=== PATIENT | female | born 1950 | race Caucasian/White ===

== ENCOUNTER 2018-03-02 12:48 | Observation (INO) | payer MEDICARE ==
[~2018-03-02] VITALS: Ht 162.6 cm; Wt 73.5 kg
[~2018-03-02 12:48] MED LIST: ACETAMINOPHEN325 M1 PO; ASPIR 8181 MG PO; CALCIUM 500+D1 EACH PO; CLONAZEPAM0.5 MG PO; CORICIDIN HBP1 EAC3 PO; COUGH DROPS1 EACH PO; EFFEXOR XR 3737.5 MG PO; MAGNESIUM OXID400 MG PO; METOPROLOL TART50 MG PO; MUCINEX DM ER1 EACH PO; MULTI-VITAMIN1 EACH PO; PANTOPRAZOLE SO40 MG PO; RISPERDAL1 MG PO; ROBITUSSIN COU118 ML PO; SENNOSIDES8.6 MG PO; ULTRAM50 MG PO; VALPROIC A250 MG/5 M PO; VASOTEC10 MG PO; VITAMIN B-650 MG PO; [UNRECOGNIZED DRUG - OTHER] PO
[2018-03-02 13:36] LABS: BASOPHILS % 0.4 % (0.0-1.0); EOSINOPHILS # (AUTO) 0.1 (0.0-0.4); EOSINOPHILS % 1.1 % (0.0-6.0); HEMATOCRIT 37.6 % (34.2-44.1); HEMOGLOBIN 12.7 g/dL (12.0-16.0); LYMPHOCYTES # (AUTO) 1.4 (1.0-3.2); LYMPHOCYTES % 24.1 % (18.0-39.1); MEAN CORPUSCULAR HEMOGLOBIN 31.4 pg (28-32); MEAN CORPUSCULAR HGB CONC 33.8 g/dL (31-35); MEAN CORPUSCULAR VOLUME 93.1 fL (81-99); MONOCYTES # (AUTO) 0.4 (0.2-0.8); MONOCYTES % 7.5 % (4.4-11.3); NEUTROPHILS # (AUTO) 3.7 (2.1-6.9); NEUTROPHILS % 66.5 % (38.7-80.0); PLATELET COUNT 270 x10e3/uL (140-360); RED BLOOD COUNT 4.04 x10e6/uL (3.6-5.1); RED CELL DISTRIBUTION WIDTH 12.7 % (11.7-14.4)
--- NOTE | 2018-03-02 13:51 | Diagnostic Imaging Report ---
Examination: Single AP view of the chest. COMPARISON: None. INDICATION: Altered mental status DISCUSSION: Lines/tubes: None. Lungs: The lungs are well inflated and clear. No pneumonia or pulmonary edema. Pleura: No pleural effusion or pneumothorax. Heart and mediastinum: The heart and the mediastinum are unremarkable. Bones and soft tissues: No acute bony abnormalities. IMPRESSION: 1. No acute cardiopulmonary abnormalities. Signed by: Dr. Fidel Scott M.D. on 03/02/2018 1:47 PM
[2018-03-02 13:54] LABS: ALANINE AMINOTRANSFERASE 18 IU/L (0-55); ALBUMIN 3.7 g/dL (3.5-5.0); ALBUMIN/GLOBULIN RATIO 1.3 (0.8-2.0); ALKALINE PHOSPHATASE 49 IU/L (40-150); ANION GAP 14.6 mmol/L (8-16); BLOOD UREA NITROGEN 13 mg/dL (7-26); BUN/CREATININE RATIO 13 (6-25); CALCIUM 9.6 mg/dL (8.4-10.2); CARBON DIOXIDE 25 mmol/L (22-29); CHLORIDE 100 mmol/L (98-107); CREATINE KINASE 77 IU/L (29-168); CREATININE, SERUM 1.02 mg/dL (0.57-1.11); EST GLOMERULAR FILTRATION RATE 54 ML/MIN (60-); GLUCOSE 94 mg/dL (74-118); POTASSIUM 4.6 mmol/L (3.5-5.1); SODIUM 135 mmol/L (136-145)
[2018-03-02 14:01] LABS: VALPROIC ACID 48 ug/mL (50-100)
--- NOTE | 2018-03-02 14:08 | Diagnostic Imaging Report ---
History: Lethargic, AMS Comparison studies: None Technique: Axial images were obtained from the skull base to the vertex. Coronal and sagittal reconstructions obtained from the axial data. Dose modulation, iterative reconstruction, and/or weight based adjustment of the mA/kV was utilized to reduce the radiation dose to as low as reasonably achievable. Findings: Scalp/skull: No abnormalities. No fractures, blastic or lytic lesions. Extra-axial spaces: No masses. No fluid collections. Brain sulci: Appropriate for age. Ventricles: Normal in size and configuration. No hydrocephalus. Parenchyma: No abnormal densities. No masses, hemorrhage, acute or chronic cortical vascular insults. Sellar/suprasellar region: No abnormalities Craniocervical junction: Patent foramen magnum. No Chiari one malformation. Atherosclerotic calcifications of the carotid siphons. IMPRESSION: No acute abnormalities . Signed by: DR Valerio Mcclain M.D. on 03/02/2018 2:05 PM
[2018-03-02 14:25] LABS: BILIRUBIN,URINE NEGATIVE (NEGATIVE); CLARITY,URINE CLEAR (CLEAR); COLOR,URINE YELLOW (YELLOW); KETONES,URINE NEGATIVE (NEGATIVE); LEUKOCYTE ESTERASE ,URINE NEGATIVE (NEGATIVE); NITRITE,URINE NEGATIVE (NEGATIVE); PROTEIN,URINE DIPSTICK NEGATIVE (NEGATIVE); URINE UROBILINOGEN 0.2 mg/dL (0.2 - 1)
[2018-03-02 14:26] LABS: AMPHETAMINES SCREEN,URINE NEGATIVE (NEGATIVE); BENZODIAZEPINES SCREEN,URINE NEGATIVE (NEGATIVE); PHENCYCLIDINE SCREEN,URINE NEGATIVE (NEGATIVE)
[2018-03-02] MEDS: SODIUM CHLORIDE 0.9% 1000ML 1,000 ML IV SCH (18:39)
[2018-03-02 18:42] VITALS: BP 153/77
[2018-03-02] MEDS ORDERED: FUROSEMIDE40 MG PO (19:53)
[2018-03-02] MEDS ORDERED: VITAMIN E400 UNIT PO (19:53)
[2018-03-02] MEDS ORDERED: CORICIDIN HBP1 EAC2 PO (19:53)
[2018-03-02] MEDS ORDERED: LORATADINE10 MG PO (19:53)
[2018-03-02] MEDS ORDERED: PROBIOTIC & AC1 EACH PO (19:53)
[2018-03-02] MEDS ORDERED: SAPHRIS10 MG PO (19:53)
[2018-03-02] MEDS ORDERED: VITAMIN C1000 MG PO (19:53)
[2018-03-02] MEDS ORDERED: LISINOPRIL10 MG PO (19:53)
[2018-03-02] MEDS ORDERED: VITAMIN D1000 UNI1 PO (19:53)
[2018-03-02] MEDS ORDERED: VALPROIC A500 MG/10 PO (19:53)
[2018-03-02] MEDS ORDERED: VITAMIN B COMP1 EACH PO (19:53)
[2018-03-02 20:00] VITALS: BP 150/78
[2018-03-02] MEDS ORDERED: SENNOSIDES8.6 MG PO (20:25)
[2018-03-02] MEDS ORDERED: MOTRIN200 MG PO (20:25)
[2018-03-02] MEDS ORDERED: COUGH DROPS1 EACH PO (20:25)
[2018-03-02] MEDS ORDERED: PROMETHAZINE HC25 M1 PO (20:25)
[2018-03-02] MEDS ORDERED: ZOFRAN ODT4 MG PO (20:25)
[2018-03-02 22:00] VITALS: BP 150/78
[2018-03-03] VITALS: BP 127/61
[2018-03-03] MEDS: SODIUM CHLORIDE 0.9% 1000ML 1,000 ML IV SCH (02:15)
== END 2018-03-03 06:33 ==
LOC: ER 12:55 → ERHOLD 16:42 → MED/SURG 18:31
PROVIDERS: ADMIT Internal Medicine; ATTEND Internal Medicine
DX: R41.82 Altered mental status, unspecified (principal); R40.1 Stupor
CPT/HCPCS: 36415; 70450; 71045; 80053; 80164; 80307; 81001; 82550; 82553; 83605; 84484; 85025; 93005; 99284; G0378 ×2; J7030